=== PATIENT | female | born 1995 | race Caucasian/White ===

== ENCOUNTER 2018-06-07 18:52 | Emergency (ER) | payer SELFPAY ==
[~2018-06-07] VITALS: Ht 162.6 cm; Wt 65.8 kg
[2018-06-07] MEDS ORDERED: HYDROCODONE/APAP 7.5MG-325MG 1 EA TAB PO PRN (19:15)
[2018-06-07] MEDS ORDERED: LIDOCAINE 1% W/EPINEPHRINE 20 ML VIAL INJ ONE (20:15)
[2018-06-07] MEDS ORDERED: NEOMYCIN/POLYMYX/BACITR OINT 0.9 GM PKT TOP ONE (21:15)
[2018-06-07 21:51] VITALS: BP 128/92
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
== END 2018-06-07 22:00 | disposition home or self-care (01) ==
LOC: ER 18:52
DX: S81.011A Laceration without foreign body, right knee, initial encounter (principal); S80.02XA Contusion of left knee, initial encounter; S80.01XA Contusion of right knee, initial encounter; V43.52XA Car driver injured in collision with other type car in traffic accident, initial encounter; Y92.488 Other paved roadways as the place of occurrence of the external cause
CPT/HCPCS: 99284